=== PATIENT | male | born 1995 | race Hispanic/Latino ===

== ENCOUNTER 2019-10-29 02:04 | Inpatient (IN) | payer OTHER, SELFPAY ==
[2019-10-29 02:43] LABS: #Basophils 0.1 thou/uL (0.0-0.2); #Eosinphils 0.4 thou/uL (0.0-0.7); #Monocytes 0.5 thou/uL (0.11-0.59); #Neutrophils 4.5 thou/uL (1.40-6.50); %Basophils 1.2 % (0.0-1.0); %Eosinophils 4.5 % (0.0-10.0); %Lymphocytes 41.9 % (21.0-51.0); %Monocytes 5.6 % (0.0-10.0); %Neutrophils 46.8 % (42.0-75.0); Mean Corpuscular HGB CONC 34.7 g/dL (32.0-36.0); Mean Corpuscular Hemoglobin 30.6 pg (27.0-31.0); Mean Corpuscular Volume 88.3 fL (78.0-98.0); Mean Platelet Volume 7.5 fL (7.4-10.4); Platelet Count 355 thou/uL (130-400); RBC Distribution Width 11.4 % (11.5-14.5); White Blood Cell (WBC) Count 9.6 thou/uL (4.8-10.8)
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
[2019-10-29 03:06] LABS: ALT (SGPT) 153 U/L (8-55); AST (SGOT) 166 U/L (5-34); Albumin 4.7 g/dL (3.5-5.0); Alcohol 170 mg/dL (Less than 10); Alkaline Phosphatase 97 U/L (40-110); Anion Gap 16 mmol/L (10-20); BUN (Urea Nitrogen) 14 mg/dL (8.9-20.6); Bilirubin, Total 0.3 mg/dL (0.2-1.2); Calc. Creatinine Clearance 0 mL/min (70-130); Calcium 9.1 mg/dL (7.8-10.44); Carbon Dioxide 21 mmol/L (22-29); Chloride 107 mmol/L (98-107); Estimated GFR-MDRD Greater than 90; Globulin 3.1 g/dL (2.4-3.5); Glucose 108 mg/dL (70-105); Lipase 13 U/L (8-78); Potassium 3.7 mmol/L (3.5-5.1); Protein, Total 7.8 g/dL (6.0-8.3); Sodium 140 mmol/L (136-145)
[2019-10-29] MEDS ORDERED: Morphine 4 MG/ML VIAL ONE ×2 (03:12→04:36)
[2019-10-29] MEDS ORDERED: Ondansetron PF 4 MG/2 ML Vial ONE (03:12)
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
[2019-10-29] MEDS ORDERED: Adacel (T-DAP) 0.5 ML SYRINGE ONE (03:16)
[2019-10-29] MEDS ORDERED: Lidocaine 2% MPF 10 ML AMP (For Epidural Use) ONE (03:16)
[2019-10-29] MEDS ORDERED: CEFAZOLIN 1 GM VIAL ONE ×2 (03:16→06:22)
[2019-10-29] MEDS ORDERED: Lidocaine 1% w/Epinephrine 1:100K 20 ML VIAL ONE (03:17)
[2019-10-29 03:38] LABS: Acetaminophen Less than 6.0 mcg/mL (10.0-30.0); Alcohol 166 mg/dL (Less than 10); Magnesium 2.3 mg/dL (1.6-2.6); Phosphorus 4.1 mg/dL (2.3-4.7); Salicylate Less than 8.0 mg/dL (15.0-30.0)
[2019-10-29] MEDS ORDERED: Morphine 4 MG/ML VIAL SLOW IVP PRN (03:39)
[2019-10-29] MEDS ORDERED: hydrALAZINE 20 MG/ML VIAL SLOW IVP PRN (03:39)
[2019-10-29] MEDS ORDERED: Dextrose 50% Abboject 50 ML SYRINGE SLOW IVP PRN (03:39)
[2019-10-29] MEDS ORDERED: Dextrose 5% in Water 1,000 ML IV PRN (03:39)
[2019-10-29] MEDS ORDERED: Ondansetron PF 4 MG/2 ML Vial IVP PRN (03:39)
[2019-10-29] MEDS ORDERED: traMADol HCl 50 MG TAB PO PRN (03:42)
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
[2019-10-29] MEDS: Sodium Chloride 0.9% 1,000 ML IV SCH ×3 (05:40→20:05)
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
[2019-10-29 10:19] LABS: #Monocytes 0.8 thou/uL (0.11-0.59); #Neutrophils 9.9 thou/uL (1.40-6.50); %Eosinophils 0.2 % (0.0-10.0); %Lymphocytes 8.7 % (21.0-51.0); %Monocytes 6.9 % (0.0-10.0); %Neutrophils 84.2 % (42.0-75.0); Hemoglobin 13.7 g/dL (14.0-18.0); Mean Corpuscular HGB CONC 34.4 g/dL (32.0-36.0); Mean Corpuscular Volume 90.1 fL (78.0-98.0); Mean Platelet Volume 7.6 fL (7.4-10.4); Platelet Count 303 thou/uL (130-400); RBC Distribution Width 11.3 % (11.5-14.5); Red Blood Cell (RBC) Count 4.43 mill/uL (4.70-6.10); White Blood Cell (WBC) Count 11.8 thou/uL (4.8-10.8)
[2019-10-29] MEDS ORDERED: traMADol HCl 50 MG TAB ONE (12:07)
[2019-10-29] MEDS ORDERED: Thiamine 100 MG TAB ONE (12:07)
[2019-10-29] MEDS ORDERED: Multivitamin W/ Minerals 1 TAB ONE (12:07)
[2019-10-29] MEDS ORDERED: Famotidine/PF 20 mg/2ml Vial ONE (12:08)
[2019-10-29] MEDS ORDERED: Folic Acid 1 MG TAB ONE (12:08)
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
[2019-10-29] MEDS: traMADol HCl 50 MG TAB PO PRN (12:15)
[2019-10-29] MEDS: Famotidine/PF 20 mg/2ml Vial SLOW IVP SCH ×2 (12:15→20:01)
[2019-10-29] MEDS: Thiamine 100 MG TAB PO SCH (12:24)
[2019-10-29] MEDS: Multivitamin W/ Minerals 1 TAB PO SCH (12:24)
[2019-10-29] MEDS: Folic Acid 1 MG TAB PO SCH (12:24)
[2019-10-29] MEDS: Gabapentin 300 MG CAP PO SCH ×3 (13:33→20:01)
[2019-10-29] MEDS: Senokot S 8.6-50 MG TAB PO SCH ×2 (13:36→20:01)
[2019-10-29] MEDS: Oxazepam 10 MG CAP PO SCH ×2 (13:51→21:06)
[2019-10-29] MEDS: Polyethylene Glycol 3350 17 GM Packet PO SCH (14:01)
[2019-10-29 14:03] VITALS: BMI 36.9
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
[2019-10-30] MEDS: traMADol HCl 50 MG TAB PO PRN ×3 (00:21→14:31)
[2019-10-30] MEDS: Sodium Chloride 0.9% 1,000 ML IV SCH (05:12)
[2019-10-30] MEDS: Oxazepam 10 MG CAP PO SCH ×3 (05:12→22:06)
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
[2019-10-30] MEDS: Famotidine/PF 20 mg/2ml Vial SLOW IVP SCH ×2 (09:36→22:06)
[2019-10-30] MEDS: Senokot S 8.6-50 MG TAB PO SCH ×2 (09:36→22:06)
[2019-10-30] MEDS: Polyethylene Glycol 3350 17 GM Packet PO SCH (09:36)
[2019-10-30] MEDS: Multivitamin W/ Minerals 1 TAB PO SCH (09:37)
[2019-10-30] MEDS: Gabapentin 300 MG CAP PO SCH ×3 (09:37→22:06)
[2019-10-30] MEDS: Thiamine 100 MG TAB PO SCH (09:37)
[2019-10-30] MEDS: Folic Acid 1 MG TAB PO SCH (09:37)
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
[2019-10-30 11:03] LABS: #Eosinphils 0.3 thou/uL (0.0-0.7); #Lymphocytes 2.1 thou/uL (1.20-3.40); #Monocytes 0.8 thou/uL (0.11-0.59); #Neutrophils 4.6 thou/uL (1.40-6.50); %Basophils 0.3 % (0.0-1.0); %Eosinophils 3.4 % (0.0-10.0); %Lymphocytes 26.5 % (21.0-51.0); %Monocytes 10.7 % (0.0-10.0); %Neutrophils 59.1 % (42.0-75.0); Hemoglobin 13.3 g/dL (14.0-18.0); Mean Corpuscular HGB CONC 33.8 g/dL (32.0-36.0); Mean Corpuscular Hemoglobin 30.9 pg (27.0-31.0); Mean Corpuscular Volume 91.3 fL (78.0-98.0); Mean Platelet Volume 7.4 fL (7.4-10.4); Platelet Count 249 thou/uL (130-400); RBC Distribution Width 11.4 % (11.5-14.5); Red Blood Cell (RBC) Count 4.31 mill/uL (4.70-6.10); White Blood Cell (WBC) Count 7.8 thou/uL (4.8-10.8)
[2019-10-31] MEDS: traMADol HCl 50 MG TAB PO PRN ×2 (00:41→13:45)
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
[2019-10-31] MEDS: Oxazepam 10 MG CAP PO SCH (05:09)
[2019-10-31 06:14] LABS: #Eosinphils 0.4 thou/uL (0.0-0.7); #Lymphocytes 2.2 thou/uL (1.20-3.40); #Monocytes 0.7 thou/uL (0.11-0.59); #Neutrophils 4.9 thou/uL (1.40-6.50); %Basophils 0.3 % (0.0-1.0); %Eosinophils 5.3 % (0.0-10.0); %Lymphocytes 26.3 % (21.0-51.0); %Monocytes 8.5 % (0.0-10.0); %Neutrophils 59.7 % (42.0-75.0); Hemoglobin 13.2 g/dL (14.0-18.0); Mean Corpuscular HGB CONC 35.2 g/dL (32.0-36.0); Mean Corpuscular Hemoglobin 31.4 pg (27.0-31.0); Mean Corpuscular Volume 89.3 fL (78.0-98.0); Mean Platelet Volume 7.4 fL (7.4-10.4); Platelet Count 251 thou/uL (130-400); RBC Distribution Width 11.3 % (11.5-14.5); Red Blood Cell (RBC) Count 4.21 mill/uL (4.70-6.10); White Blood Cell (WBC) Count 8.2 thou/uL (4.8-10.8)
[2019-10-31] MEDS: Multivitamin W/ Minerals 1 TAB PO SCH (10:20)
[2019-10-31] MEDS: Senokot S 8.6-50 MG TAB PO SCH (10:20)
[2019-10-31] MEDS: Thiamine 100 MG TAB PO SCH (10:20)
[2019-10-31] MEDS: Famotidine/PF 20 mg/2ml Vial SLOW IVP SCH (10:20)
[2019-10-31] MEDS: Folic Acid 1 MG TAB PO SCH (10:20)
[2019-10-31] MEDS: Gabapentin 300 MG CAP PO SCH (10:20)
[2019-10-31] MEDS: Polyethylene Glycol 3350 17 GM Packet PO SCH (10:21)
[2019-10-31 11:39] VITALS: BP 141/84; TEMP 97.9
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
== END 2019-10-31 14:30 | disposition home or self-care (01) | DRG 442 ==
LOC: ERS 02:04 → ERHOLD 04:17 → SURG A 13:45
PROVIDERS: ADMIT Surgery; ATTEND Surgery
DX: S36.113A Laceration of liver, unspecified degree, initial encounter (principal); S22.31XA Fracture of one rib, right side, initial encounter for closed fracture; V89.2XXA Person injured in unspecified motor-vehicle accident, traffic, initial encounter; S51.811A Laceration without foreign body of right forearm, initial encounter; S00.81XA Abrasion of other part of head, initial encounter; S40.212A Abrasion of left shoulder, initial encounter; F10.129 Alcohol abuse with intoxication, unspecified; S93.401A Sprain of unspecified ligament of right ankle, initial encounter; K76.89 Other specified diseases of liver; Y90.6 Blood alcohol level of 120-199 mg/100 ml
CPT/HCPCS: 36415; 70450; 71260; 72125; 74177; 80053; 80307; 83605; 83690; 83735; 84100; 85025; 86850; 86900; 86901; 90715; G0390; J0690; J2001; J2270; J2405; S0028